=== PATIENT | male | born 1980 | race Hispanic/Latino ===

== ENCOUNTER 2018-08-06 06:15 | Day surgery (SDC) | payer BC ==
[2018-08-05 15:31] VITALS: BP 114/75
[2018-08-05 15:41] LABS: BASOPHILS % (AUTO) 0.6 % (0.0-5.0); EOSINOPHILS % (AUTO) 3.6 % (0.0-8.0); LYMPHOCYTES % (AUTO) 26.1 % (21.0-51.0); MEAN CORPUSCULAR HEMOGLOBIN 29.3 pg (27.0-33.0); MEAN CORPUSCULAR HGB CONC 34.7 g/dL (32.0-36.0); MEAN CORPUSCULAR VOLUME 84.6 fL (79-99); MONOCYTES % (AUTO) 5.5 % (3.0-13.0); NEUTROPHILS % (AUTO) 64.2 % (40.0-77.0); NUCLEATED RED BLOOD CELLS 0.1 % (0.0-0.19); PLATELET COUNT (AUTO) 234 K/uL (130-400); RED BLOOD CELL COUNT(AUTO) 5.07 MIL/uL (4.50-6.20); WHITE BLOOD COUNT (AUTO) 9.8 K/uL (4.8-10.8)
[2018-08-05 15:55] LABS: CREATININE 0.9 mg/dL (0.5-1.5); POTASSIUM 3.4 mmol/L (3.5-5.1)
[~2018-08-06] VITALS: Ht 180.3 cm; Wt 102.8 kg
[2018-08-06] VITALS (18 sets, daily range): BP systolic 115–146; BP diastolic 75–90
[2018-08-06] MEDS ORDERED: SODIUM CHLORIDE 0.9% 1000ML 1,000 ML IV ONE (07:34)
[2018-08-06] MEDS: CEFAZOLIN 3GM /D5W 100ML 100 ML IV PRN ×2 (07:41→13:00)
[2018-08-06] MEDS ORDERED: IBUP-2077 PO (07:53)
[2018-08-06] MEDS ORDERED: LIDOCAINE PF 2% 5ML ABBOJECT ONE (08:10)
[2018-08-06] MEDS ORDERED: DEXAMETHASONE SOD PHOSPHATE 10MG/ML 1ML VIAL ONE (08:10)
[2018-08-06] MEDS ORDERED: MIDAZOLAM HCL 1 MG/ML 2ML VIAL ONE (08:11)
[2018-08-06] MEDS ORDERED: ONDANSETRON HCL 4 MG/2 ML VIAL ONE ×4 (08:11→13:05)
[2018-08-06] MEDS ORDERED: FENTANYL CITRATE PF 50 MCG/1 ML 2ML VIAL ONE ×3 (08:11→15:09)
[2018-08-06] MEDS ORDERED: PROPOFOL 10 MG/ML 20ML VIAL IV ONE (08:11)
[2018-08-06] MEDS ORDERED: CEFAZOLIN SODIUM 1 GM VIAL ONE ×2 (12:33→16:39)
[2018-08-06] MEDS ORDERED: EPHEDRINE SULFATE 50 MG/ML AMPULE ONE (12:57)
[2018-08-06] MEDS ORDERED: ROCURONIUM 10MG/1ML SYR 10 MG/ML ML ONE (12:58)
[2018-08-06] MEDS ORDERED: ROPIVACAINE 0.5% 5MG/ML 30ML IJ ONE ×2 (14:50→14:57)
[2018-08-06] MEDS ORDERED: CEPH500B PO (17:46)
[2018-08-06] MEDS ORDERED: HYDR-4457 PO (17:46)
[2018-08-06] MEDS ORDERED: NAPR-1023 PO (17:46)
[2018-08-06] MEDS ORDERED: MEPERIDINE-PF 25 MG/ML SYG ONE ×2 (18:19→18:29)
[2018-08-06] MEDS ORDERED: KETOROLAC TROMETHAMINE 30MG/ML ONE (18:39)
== END 2018-08-06 20:08 | disposition home or self-care (01) ==
LOC: DAH 06:15
PROVIDERS: ATTEND Orthopaedic Surgery
DX: S83.522A Sprain of posterior cruciate ligament of left knee, initial encounter (principal); S83.242A Other tear of medial meniscus, current injury, left knee, initial encounter; Z79.2 Long term (current) use of antibiotics; Z79.1 Long term (current) use of non-steroidal anti-inflammatories (NSAID); Z79.899 Other long term (current) drug therapy; Z82.49 Family history of ischemic heart disease and other diseases of the circulatory system; Z72.89 Other problems related to lifestyle; Z87.891 Personal history of nicotine dependence
CPT/HCPCS: 29881; 29889; 36415; 76000; 80048; 85025; A4606; A4649 ×4; A4930 ×2; A6223; C1713 ×2; C1762 ×2; C1776; G0168; J0690 ×2; J1100; J1885; J2001; J2175 ×2; J2250; J2405 ×2; J2704; J2795; J3010 ×3; J3490; J7030; J7120